=== PATIENT | female | born 2005 | race Caucasian/White ===

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

== ENCOUNTER 2024-05-01 15:31 | Emergency (ER) | payer BC ==
--- NOTE | 2024-05-01 15:35 | ERPHSYRPT ---
- History of Present Illness Time Seen by Provider: 05/01/24 15:34 Historian: patient Exam Limitations: no limitations Physician History: This is a 19-year-old white female patient who has no primary care provider and presents by private vehicle secondary to chest pain that was rather abrupt in onset occurring approximately 1330 while eating lunch at work. Patient lynn cribes the pain as right of mid sternal area is sharp and radiates into the back. Patient did state that earlier today she had some pain in the right scapular area first. That resolved. Patient has not had any abdominal surgeries in the past. Her gallbladder is still in place. Patient denies sh ortness of breath. She has not had fever. She denies cough. She has had no nausea vomiting or diarrhea symptoms. She has no known bleeding or clotting disorders. Timing/Duration: today Quality: sharpness Location: substernal, central Severity of Pain-Max: mild Severity of Pain-Current: mild Modifying Factors: Improves With: nothing Associated Symptoms: denies symptoms Prior Chest Pain/Cardiac Workup: no prior chest pain Nitro Today/Relief: no nitro taken today Aspirin Treatment Today: no aspirin today Allergies/Adverse Reactions: Sulfa (Sulfonamide Antibiotics) Allergy (Verified 05/01/24 15:32) Home Medications: Norelgestromin/Ethin.estradiol [Xulane 150-35 Mcg/Day Patch] 1 each TD WEEKLY 11/27/23 [History] Hx Influenza Vaccination/Date Given: No Hx Pneumococcal Vaccination/Date Given: No Travel Risk - International Travel Have you traveled outside of the country in past 3 weeks: No - Emerging Infectious Disease Are you exhibiting symptoms associated with any current EIDs: No - Review of Systems Constitutional: No Symptoms Eyes: No Symptoms Ears, Nose, & Throat: No Symptoms Respiratory: No Symptoms Cardiac: Chest Pain Abdominal/Gastrointestinal: No Symptoms Genitourinary Symptoms: No Symptoms Musculoskeletal: No Symptoms Skin: No Symptoms Neurological: No Symptoms Psychological: No Symptoms Endocrine: No Symptoms Hematologic/Lymphatic: No Symptoms Immunological/Allergic: No Symptoms All Other Systems: Reviewed and Negative - Past Medical History Pertinent Past Medical History: Yes Psycho-Social History: Attention Deficit Disorder - Past Surgical History Past Surgical History: No - Social History Smoking Status: Never smoker Exposure to second hand smoke: No Drug Use: none Patient Lives Alone: No - Nursing Vital Signs Nursing Vital Signs: Initial Vital Signs Pulse Rate 100 H 05/01/24 15:30 Respiratory Rate 15 05/01/24 15:30 Blood Pressure 140/105 05/01/24 15:30 O2 Sat by Pulse Oximetry 98 05/01/24 15:30 Pain Scale Pain Intensity 5 - Physical Exam General Appearance: no apparent distress, alert, anxiety Eye Exam: PERRL/EOMI, eyes nml inspection Ears, Nose, Throat Exam: normal ENT inspection, moist mucous membranes Neck Exam: normal inspection, non-tender, supple, full range of motion Respiratory Exam: normal breath sounds, chest tenderness, lungs clear, airway intact, No respiratory distress Cardiovascular Exam: regular rate/rhythm, normal heart sounds, normal peripheral pulses Gastrointestinal/Abdomen Exam: soft, normal bowel sounds, No tenderness Pelvic Exam: not done Rectal Exam: not done Back Exam: normal inspection, normal range of motion, No CVA tenderness, No vertebral tenderness Extremity Exam: normal inspection, normal range of motion, pelvis stable Neurologic Exam: alert, oriented x 3, cooperative, 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 QTc is 413) Ordered Tests: Active Orders 24 hr Category Date Time Status EKG-ER Only STAT Care 05/01/24 15:45 Active IV Insertion STAT Care 05/01/24 15:45 Active CHEST WITH CONTRAST [CT] Stat Exams 05/01/24 16:34 Completed AMYLASE Stat Lab 05/01/24 13:30 Completed CBC W DIFF Stat Lab 05/01/24 13:30 Completed CMP Stat Lab 05/01/24 13:30 Completed CULTURE,URINE Stat Lab 05/01/24 16:59 Received D-DIMER QUANTITATIVE Stat Lab 05/01/24 13:30 Completed HCG QUALITATIVE, SERUM Stat Lab 05/01/24 13:30 Completed LIPASE Stat Lab 05/01/24 13:30 Completed MAGNESIUM Stat Lab 05/01/24 13:30 Completed TROPONIN Q4H Lab 05/01/24 13:30 Completed TROPONIN Q4H Lab 05/01/24 20:00 Ordered TROPONIN Q4H Lab 05/02/24 00:00 Ordered UA W/RFX UR CULTURE Stat Lab 05/01/24 16:59 Completed Medication Summary Discontinued Medications Generic Name Dose Route Start Last Admin Trade Name Mari PRN Reason Stop Dose Admin Aspirin 324 mg 05/01/24 15:47 05/01/24 15:53 Aspirin 81 Mg Tab.Chew PO 05/01/24 15:48 324 mg STAT ONE Administration Aspirin Confirm 05/01/24 15:53 Aspirin 81 Mg Tab.Chew Administered 05/01/24 15:54 Dose 324 mg .ROUTE .STK-MED ONE Enoxaparin Sodium 90 mg 05/01/24 17:11 05/01/24 17:28 Enoxaparin Sodium 120 Mg/0.8 Ml Syringe SQ 05/01/24 17:12 90 mg STAT STA Administration Enoxaparin Sodium Confirm 05/01/24 17:24 Enoxaparin Sodium 120 Mg/0.8 Ml Syringe Administered 05/01/24 17:25 Dose 120 mg SQ .STK-MED ONE Sodium Chloride 500 mls @ 500 mls/hr 05/01/24 16:34 05/01/24 17:47 Sodium Chloride 0.9% 500 Ml IV 05/01/24 17:33 Infused .Q1H ONE Infusion Sodium Chloride Confirm 05/01/24 16:39 Sodium Chloride 0.9% 500 Ml Administered 05/01/24 16:40 Dose 500 mls @ ud IV .STK-MED ONE Lab/Rad Data: Laboratory Result Diagrams 05/01/24 13:30 05/01/24 13:30 Laboratory Results 05/01/24 05/01/24 05/01/24 Range/Units 16:59 13:30 13:30 WBC (3.98-10.04) x10^3/uL RBC (3.93-5.22) x10^6/uL Hgb (11.2-15.7) g/dL Hct (34.1-44.9) % MCV (79.4-94.8) fL MCH (25.6-32.2) pg MCHC (32.2-35.5) g/dL RDW (11.7-14.4) % Plt Count (182-369) x10^3/uL MPV (9.4-12.3) fL Gran % (34.0-71.1) % Immature Gran % (Auto) (0.001-0.429) % Nucleat RBC Rel Count (0.00-0.2) % Eos # (Auto) (0.04-0.36) x10^3/uL Immature Gran # (Auto) (0.001-0.031) x10^3u/L Absolute Lymphs (auto) (1.18-3.74) x10^3/uL Absolute Monos (auto) (0.24-0.86) x10^3/uL Absolute Nucleated RBC (0.00-0.012) x10^3u/L Lymphocytes % (19.3-51.7) % Monocytes % (4.7-12.5) % Eosinophils % (0.7-5.8) % Basophils % (0.1-1.2) % Absolute Granulocytes (1.56-6.13) x10^3/uL Basophils # (0.01-0.08) x10^3/uL D-Dimer (0.0-0.50) mg/L Sodium (135-145) mmol/L Potassium (3.5-5.1) mmol/L Chloride (98-107) mmol/L Carbon Dioxide (22-30) mmol/L Anion Gap (5-15) MEQ/L BUN (7-17) mg/dL Creatinine (0.52-1.04) mg/dL Estimated GFR ML/MIN Glucose (74-106) mg/dL Calcium (8.4-10.2) mg/dL Magnesium (1.6-2.3) mg/dL Total Bilirubin (0.2-1.3) mg/dL AST (14-36) U/L ALT (0-35) U/L Alkaline Phosphatase (38-126) U/L Troponin I < 0.012 (0.000-0.033) ng/mL Serum Total Protein (6.3-8.2) g/dL Albumin (3.5-5.0) g/dL Amylase (30-110) U/L Lipase (23-300) U/L Serum HCG, Qual NEGATIVE (NEGATIVE) Urine Color Yellow (Yellow) Urine Appearance Clear (Clear) Urine pH 5.5 (4.6-8.0) Ur Specific [place] >=1.030 A (1.005-1.030) Urine Protein Negative (Negative) Urine Glucose (UA) Negative (Negative) mg/dL Urine Ketones Negative (Negative) Urine Blood Negative (Negative) Urine Nitrite Negative (Negative) Urine Bilirubin Negative (Negative) Urine Urobilinogen 1.0 A (0.2) mg/dL Ur Leukocyte Esterase Small A (Negative) U Hyaline Cast (Auto) 3-5 A (0-2) /LPF Urine Microscopic RBC 0-2 (0-5) /HPF Urine Microscopic WBC 6-10 A (0-5) /HPF Ur Epithelial Cells Few (None Seen) /HPF Urine Bacteria Few A (None Seen) /HPF Urine Culture Reflexed YES (NO) 05/01/24 05/01/24 05/01/24 Range/Units 13:30 13:30 13:30 WBC 11.8 H (3.98-10.04) x10^3/uL RBC 4.72 (3.93-5.22) x10^6/uL Hgb 13.3 (11.2-15.7) g/dL Hct 39.8 (34.1-44.9) % MCV 84.3 (79.4-94.8) fL MCH 28.2 (25.6-32.2) pg MCHC 33.4 (32.2-35.5) g/dL RDW 12.1 (11.7-14.4) % Plt Count 457 H (182-369) x10^3/uL MPV 9.2 L (9.4-12.3) fL Gran % 64.5 (34.0-71.1) % Immature Gran % (Auto) 0.5 H (0.001-0.429) % Nucleat RBC Rel Count 0.0 (0.00-0.2) % Eos # (Auto) 0.12 (0.04-0.36) x10^3/uL Immature Gran # (Auto) 0.06 H (0.001-0.031) x10^3u/L Absolute Lymphs (auto) 2.98 (1.18-3.74) x10^3/uL Absolute Monos (auto) 0.97 H (0.24-0.86) x10^3/uL Absolute Nucleated RBC 0.00 (0.00-0.012) x10^3u/L Lymphocytes % 25.3 (19.3-51.7) % Monocytes % 8.2 (4.7-12.5) % Eosinophils % 1.0 (0.7-5.8) % Basophils % 0.5 (0.1-1.2) % Absolute Granulocytes 7.60 H (1.56-6.13) x10^3/uL Basophils # 0.06 (0.01-0.08) x10^3/uL D-Dimer 0.54 H (0.0-0.50) mg/L Sodium 140 (135-145) mmol/L Potassium 3.9 (3.5-5.1) mmol/L Chloride 109 H (98-107) mmol/L Carbon Dioxide 21 L (22-30) mmol/L Anion Gap 14.0 (5-15) MEQ/L BUN 11 (7-17) mg/dL Creatinine 0.61 (0.52-1.04) mg/dL Estimated GFR 131.2 ML/MIN Glucose 108 H (74-106) mg/dL Calcium 9.3 (8.4-10.2) mg/dL Magnesium 1.6 (1.6-2.3) mg/dL Total Bilirubin 0.30 (0.2-1.3) mg/dL AST 22 (14-36) U/L ALT 17 (0-35) U/L Alkaline Phosphatase 109 (38-126) U/L Troponin I (0.000-0.033) ng/mL Serum Total Protein 7.9 (6.3-8.2) g/dL Albumin 4.0 (3.5-5.0) g/dL Amylase 67 (30-110) U/L Lipase 76 (23-300) U/L Serum HCG, Qual (NEGATIVE) Urine Color (Yellow) Urine Appearance (Clear) Urine pH (4.6-8.0) Ur Specific [place] (1.005-1.030) Urine Protein (Negative) Urine Glucose (UA) (Negative) mg/dL Urine Ketones (Negative) Urine Blood (Negative) Urine Nitrite (Negative) Urine Bilirubin (Negative) Urine Urobilinogen (0.2) mg/dL Ur Leukocyte Esterase (Negative) U Hyaline Cast (Auto) (0-2) /LPF Urine Microscopic RBC (0-5) /HPF Urine Microscopic WBC (0-5) /HPF Ur Epithelial Cells (None Seen) /HPF Urine Bacteria (None Seen) /HPF Urine Culture Reflexed (NO) - Progress Progress: improved, re-examined Air Movement: good Progress Note: 05/01/24 16:00 My medical decision making and the assignment of moderate complexity to this patient's medical issue today is based on review the patient's past medical history, review of patient's medication list, review the patient drug allergy list, history present illness and physical findings on examination. The workup in this patient includes placement of an intravenous line, CBC, CMP, amylase, lipase, magnesium level, chest x-ray, twelve-lead EKG, D-dimer level and troponin level. Differential diagnosis includes but is not limited to gallbladder pathology, arrhythmia, hypokalemia, myocardial infarction, pulmonary embolus, pneumonia 05/01/24 17:15 I interpreted this patient's laboratory data results. The patient does have slightly elevated D-dimer level. We will order CT scan of the chest with contrast. CT scan of the chest with contrast was interpreted by the radiologist and I reviewed the impression. The impression states tiny nonoccluding pulmonary embolus anterior segmental branch of the left lower lobe. 05/01/24 18:06 This patient has no shortness of breath. There is no cough or hemoptysis. Her heart rate is normal sinus rhythm now on the monitor. I spoke with Dr. Barnhart regarding this patient. She is the telehospitalist on at this time. We agree that the patient can be treated as an outpatient. Patient received Lovenox 90 mg. Patient is reliable and she has a primary care physician Dr. Quintero that she will follow-up with. I will prescribe her Eliquis with the dosing for treatment of a pulmonary embolus. Patient's room air oxygen saturation level is 98 to 100% 05/01/24 18:11 Patient is told to stop her oral contraceptive agents and use a different form of contraception until she speaks with her primary care provider/prescribing provider. Blood Culture(s) Obtained: No Antibiotics given: No Counseled pt/family regarding: lab results, diagnosis, need for follow-up, rad results Medical Desision Making - Independent Historian Additional History obtained from: Mother - Discussion of managment Care discussed with:: hospitalist Agreed on:: Treatment plan (Follow-up as an outpatient with her primary care provider), need for follow-up (As an outpatient) - Diagnostic Testing Diagnostic test were ordered, analyzed, and reviewed by me: Yes Radiological Interpretation: Reviewed by me, Teleradiologist Report - Risk of complications The pt has a mod risk of morbidity or mortality based on: Need for prescription drug management - Departure Departure Disposition: Home Clinical Impression: Pulmonary embolus, left Condition: Stable Critical Care Time: No Referrals: DOCTOR,NO FAMILY [Primary Care Provider] - Follow up/PCP as directed Additional Instructions: Drink plenty of fluids. Stop your oral contraceptive agents. Use a different form of contraception until you speak with your primary care provider. Call your primary care provider tomorrow morning, 05/02/2024, to make arrangements for follow-up appointment to be seen in the next 3 days. Make sure you begin taking your prescription that was remotely sent to your pharmacy tomorrow morning, 05/02/2024. Prescriptions: Apixaban [Eliquis] 5 mg PO UD 8 Days #30 tablet
[2024-05-01 15:39] VITALS: TEMP 98.2
[2024-05-01 15:52] LABS: BASOPHIL % 0.5 % (0.1-1.2); Basophil (Absolute #) 0.06 x10^3/uL (0.01-0.08); Eosinophil (Absolute #) 0.12 x10^3/uL (0.04-0.36); Hematocrit 39.8 % (34.1-44.9); Hemoglobin 13.3 g/dL (11.2-15.7); IMMATURE GRAN # 0.06 x10^3u/L (0.001-0.031); IMMATURE GRAN % 0.5 % (0.001-0.429); Lymphocyte (Absolute #) 2.98 x10^3/uL (1.18-3.74); Lymphocytes % 25.3 % (19.3-51.7); Mean Cell Volume 84.3 fL (79.4-94.8); Mean Corpuscular Hemoglobin 28.2 pg (25.6-32.2); Mean Corpuscular Hgb Concent. 33.4 g/dL (32.2-35.5); Mean Platelet Volume 9.2 fL (9.4-12.3); Monocyte (Absolute #) 0.97 x10^3/uL (0.24-0.86); Monocytes % 8.2 % (4.7-12.5); Neutrophil % 64.5 % (34.0-71.1); Platelet Count 457 x10^3/uL (182-369); Red Blood Count 4.72 x10^6/uL (3.93-5.22); Red Cell Distribution Width 12.1 % (11.7-14.4); White Blood Count 11.8 x10^3/uL (3.98-10.04)
[2024-05-01] MEDS ORDERED: BABY ASPIRIN 81 MG CHEW ONE (15:53)
[2024-05-01] MEDS: BABY ASPIRIN 81 MG CHEW PO ONE (15:53)
[2024-05-01 16:08] LABS: BILIRUBIN,TOTAL 0.3 mg/dL (0.2-1.3); Calcium 9.3 mg/dL (8.4-10.2); Creatinine 1 0.61 mg/dL (0.52-1.04); EST GLOMERULAR FILTRATION RATE 131.2 ML/MIN; MAGNESIUM 1.6 mg/dL (1.6-2.3); Potassium 3.9 mmol/L (3.5-5.1); Total Protein 7.9 g/dL (6.3-8.2)
[2024-05-01 16:29] LABS: HCG SERUM TEST NEGATIVE (NEGATIVE)
[2024-05-01] MEDS ORDERED: Sodium Chloride 0.9% 500 ML 500 ML IV ONE (16:39)
[2024-05-01] MEDS: Sodium Chloride 0.9% 500 ML 500 ML IV ONE (16:41)
[2024-05-01 17:02] VITALS: RESP 18
--- NOTE | 2024-05-01 17:09 | XRAY ---
Indication: Chest pain. Elevated d-dimer. Multiple contiguous axial images obtained through the chest using 80 cc Isovue 370 contrast and PE protocol. Comparison: None Good opacification pulmonary arteries to include the lobar and segmental branches. Anterior segmental branch left lower lobe demonstrates tiny nonoccluding pulmonary embolus. No other pulmonary embolus. Heart not enlarged. Aorta is normal in course and caliber. No pathologic mediastinal/hilar lymphadenopathy. Lungs inflated and clear. Bony thorax intact. Limited upper abdomen images mild diffuse fatty liver. Impression: Tiny nonoccluding pulmonary embolus anterior segmental branch left lower lobe. Incidental fatty liver.
[2024-05-01 17:15] LABS: Appearance Clear (Clear); Bacteria Few /HPF (None Seen); Bilirubin Negative (Negative); Blood Negative (Negative); Epithelial Cells Few /HPF (None Seen); Glucose, Urine Negative (Negative); Ketones Negative (Negative); Leukocyte Esterase Small (Negative); Nitrite Negative (Negative); Ph 5.5 (4.6-8.0); Protein,Urine Dip Negative (Negative); RBC 0-2 /HPF (0-5); Specific Gravity >=1.030 (1.005-1.030)
[2024-05-01 17:20] LABS: ADD URINE CULTURE? YES (NO)
[2024-05-01] MEDS ORDERED: ENOXAPARIN SODIUM SQ ONE (17:24)
[2024-05-01] MEDS: ENOXAPARIN SODIUM SQ STA (17:28)
[2024-05-01 17:31] VITALS: PULSE 87
[2024-05-01 18:11] VITALS: BP 99/67; O2SAT 96
== END 2024-05-01 18:42 | disposition home or self-care (01) ==
LOC: ED 15:31
DX: I26.99 Other pulmonary embolism without acute cor pulmonale (principal); R07.9 Chest pain, unspecified
CPT/HCPCS: 36000; 36415; 71260; 80053; 81001; 82150; 83690; 83735; 84484; 84703; 85025; 85379; 87086; 93005; 96372; 99284; J1650; A9270-GY